=== PATIENT | male | born 1950 ===

== ENCOUNTER 2017-01-20 09:47 | Inpatient (IN) | payer MEDICARE, OTHER ==
[2017-01-20 09:50] VITALS: BMI 21.1
--- NOTE | 2017-01-20 10:51 | ED PDOC ---
Syncope/Near Syncope/Dizziness Time Seen by Provider: 01/20/17 10:03 Chief Complaint (Nursing): Dizziness/Lightheaded Chief Complaint (Provider): Nausea History Per: Patient, Family Additional Complaint(s): 66 yo male, PMH of HTN, DM, High Cholesterol, and CAD s/p Cardiac Cath in 2017, presents to ED with complaints of waking up feeling generalized weakness, epigastric abdominal pain and nausea. Pt has had 2 episodes of non bloody, non billious vomiting. No fever or chills, no diarrhea. no SOB or chest pain. Pt's PMD: Dr. Areli Byrne Insulation Installer: Dr. Aguilar (sp?) Past Medical History Reviewed: Nursing Documentation, Vital Signs Vital Signs: Last Vital Signs Temp 97.2 F L 01/20/17 09:49 Pulse 56 L 01/20/17 09:49 Resp 16 01/20/17 09:49 BP 138/69 01/20/17 09:49 Pulse Ox 100 01/20/17 09:49 - Medical History PMH: Anemia (IRON DEFICIENCY), CAD, Colonic Polyps, Diabetes, Gall Bladder Disease, HTN, Hypercholesterolemia Denies: Fractures, Chronic Kidney Disease - Surgical History Surgical History: Carotid Endarterectomy (1 year ago), Cholecystectomy (about 15 years ago), Coronary Stent, Hernia Repair - Family History Family History: States: Unknown Family Hx - Living Arrangements Living Arrangements: With Family - Social History Current smoker - smoking cessation education provided: No Ex-Smoker (has not smoked in the last 12 months): Yes Alcohol: None Drugs: Denies - Immunization History Hx Tetanus Toxoid Vaccination: No Hx Influenza Vaccination: Yes Hx Pneumococcal Vaccination: Yes - Home Medications Home Medications: Ambulatory Orders Medication Instructions Recorded Aspirin [Ecotrin] 81 mg PO DAILY 11/26/16 Carvedilol [Coreg] 12.5 mg PO BID 11/26/16 Clopidogrel [Plavix] 75 mg PO DAILY 11/26/16 Famotidine 20 mg PO DAILY 11/26/16 Ferrous Sulfate [Feosol] 325 mg PO DAILY 11/26/16 Glimepiride 2 mg PO DAILY 11/26/16 Insulin Detemir [Levemir] 15 iu SUBCUT DAILY 11/26/16 Simvastatin 40 mg PO HS 11/26/16 Lisinopril [Zestril] 20 mg PO DAILY 12/17/16 amLODIPine [Norvasc] 5 mg PO DAILY 12/17/16 - Allergies Allergies/Adverse Reactions: Allergies Allergy/AdvReac Type Severity Reaction Status Date / Time No Known Allergies Allergy Verified 01/20/17 09:52 Review of Systems ROS Statement: Except As Marked, All Systems Reviewed And Found Negative Gastrointestinal: Positive for: Nausea, Vomiting, Abdominal Pain Physical Exam - Reviewed Nursing Documentation Reviewed: Yes Vital Signs Reviewed: Yes - Physical Exam Appears: Positive for: Well, Non-toxic, No Acute Distress Head Exam: Positive for: ATRAUMATIC, NORMAL INSPECTION, NORMOCEPHALIC Skin: Positive for: Normal Color, Warm, DRY Eye Exam: Positive for: EOMI, Normal appearance, PERRL ENT: Positive for: Normal ENT Inspection Neck: Positive for: Normal, Painless ROM Cardiovascular/Chest: Positive for: Regular Rate, Rhythm Respiratory: Positive for: CNT, Normal Breath Sounds Gastrointestinal/Abdominal: Positive for: Bowel Sounds, Soft, Tenderness ( epigastric). Negative for: Mass, Distended, Guarding Back: Positive for: Normal Inspection Extremity: Positive for: Normal ROM Neurologic/Psych: Positive for: Alert, Oriented - Laboratory Results Result Diagrams: 01/20/17 10:55 01/20/17 12:37 - ECG O2 Sat by Pulse Oximetry: 100 Medical Decision Making Medical Decision Making: IV access established and diagnostics ordered. Treatment initiated with IV Zofran and pepcid EKG interpreted and cleared by ED MD IV access established and treatment initiated with IVF, Zofran and Pepcid WBC resulted 10.3 Hgb 11.0 Pt, PTT INR WNL COMP with K elevated at 5.6, repeat 5.3. Pt given Kayexalate BUN 29 Cr 2.3 IVF running Lipase elevated at 431 Abdominal US resulted negative Pt on re-eval reports feeling improved. pt is tolerating PO without difficulty. Pt asking to go home. However, due to hyperkalemia, acute renal insufficiency and elevated lipase. admission advised. Case discussed with ED MD, who agreed with plan at this time. med on-call physician, Dr. Meredith, contacted and case discussed. Arrangements made for admission. Disposition - Clinical Impression Clinical Impression: Renal insufficiency, Hyperkalemia, Weakness, Epigastric abdominal pain, Elevated lipase - Patient ED Disposition Is Patient to be Admitted: Yes - Disposition Disposition Time: 18:40 Condition: STABLE Instructions: Weakness (ED)
[2017-01-20 11:07] LABS: BASO # 0.1 K/uL (0.0-0.2); BASO % 0.9 % (0.0-2.0); EOS # 0.3 K/uL (0.0-0.7); EOS % 2.9 % (0.0-4.0); LYMPH # 1.4 K/uL (1.0-4.3); LYMPH % 13.7 % (20.0-40.0); MEAN CELL VOLUME 82.8 fl (80.0-94.0); MEAN CORPUSCULAR HGB CONC 32.6 g/dL (33.0-37.0); MEAN PLATELET VOLUME 8.3 fl (7.2-11.7); MONO # 0.8 K/uL (0.0-0.8); MONO % 7.3 % (0.0-10.0); NEUT # 7.8 K/uL (1.8-7.0); NEUT % 75.2 % (50.0-75.0); RBC 4.06 Mil/uL (4.40-5.90); RED CELL DISTRIBUTION WIDTH 13.9 % (11.5-14.5); WHITE BLOOD COUNT 10.3 K/uL (4.8-10.8)
[2017-01-20 11:24] LABS: ALB/GLOB RATIO 1.2 (1.0-2.1); ALBUMIN 3.6 g/dL (3.5-5.0); ALT/SGPT 38 U/L (21-72); AST/SGOT 48 U/L (17-59); BLOOD UREA NITROGEN 29 mg/dl (9-20); CALCIUM 8.9 mg/dL (8.4-10.2); GFR AFRICAN-AMERICAN 35; GFR NON-AFRICAN AMERICAN 29; LIPASE 421 U/L (23-300)
[2017-01-20 11:28] LABS: PROTHROMBIN TIME 11.7 Seconds (9.8-13.1)
[2017-01-20 11:29] LABS: PARTIAL THROMBOPLASTIN TIME 29.5 Seconds (25.6-37.1)
[2017-01-20 11:34] LABS: B-TYPE NATRIURETIC PEPTIDE 176 pg/ml (0-900)
--- NOTE | 2017-01-20 12:17 | CARD ---
APPROVED REPORT EKG Measurement Heart [id number] <Conclusion> Sinus bradycardia Minimal voltage criteria for LVH, may be normal variant Anteroseptal infarct, age undetermined Abnormal ECG
--- NOTE | 2017-01-20 12:24 | RAD ---
HISTORY: upper abdominal pain COMPARISON: No prior. FINDINGS: LUNGS: No active pulmonary disease. PLEURA: No significant pleural effusion identified, no pneumothorax apparent. CARDIOVASCULAR: Normal. OSSEOUS STRUCTURES: No significant abnormalities. VISUALIZED UPPER ABDOMEN: Normal. OTHER FINDINGS: None. IMPRESSION: No active disease.
[2017-01-20] MEDS ORDERED: Sodium Chloride 0.9% 1,000 ML IV STA (13:27)
--- NOTE | 2017-01-20 16:34 | US ---
HISTORY: elevated lipase, abdominal pain COMPARISON: None. TECHNIQUE: Sonographic evaluation of the right upper quadrant of the abdomen. FINDINGS: LIVER: Measures 13.0 cm in length. Normal echogenicity of the liver parenchyma. No mass. No intrahepatic bile duct dilatation. GALLBLADDER: Not visualized. Question regarding prior cholecystectomy. COMMON BILE DUCT: Measures 6 mm. No stones. No dilatation. PANCREAS: Unremarkable as visualized. No mass. No ductal dilatation. RIGHT KIDNEY: Measures 10.6 cm in length. Normal echogenicity. No calculus, mass, or hydronephrosis. AORTA: No aneurysmal dilatation. IVC: Unremarkable. OTHER FINDINGS: None . IMPRESSION: Unremarkable ultrasound examination. Please note that the gallbladder is not visualized and patient is unsure regarding any history of cholecystectomy.
[2017-01-20] MEDS ORDERED: Lactated Ringer's 1,000 ML IV SCH (18:30)
[2017-01-20] MEDS ORDERED: Sod Polystyrene Sulf 15 gm/60 ml Oral Susp PO ONE (18:33)
[2017-01-20] MEDS: Sodium Chloride 0.9% 1,000 ML IV SCH (22:40)
[2017-01-20] MEDS: Insulin Regular 100 units/ml SC SCH (23:04)
[2017-01-21] MEDS: Insulin Regular 100 units/ml SC SCH ×4 (06:33→21:33)
[2017-01-21 07:14] LABS: HEMOGLOBIN 10.9 g/dL (12.0-18.0); MEAN CELL VOLUME 81.8 fl (80.0-94.0); MEAN CORPUSCULAR HEMOGLOBIN 27.2 pg (27.0-31.0); MEAN CORPUSCULAR HGB CONC 33.2 g/dL (33.0-37.0); RBC 4.02 Mil/uL (4.40-5.90); RED CELL DISTRIBUTION WIDTH 13.5 % (11.5-14.5); WHITE BLOOD COUNT 7.4 K/uL (4.8-10.8)
[2017-01-21 07:25] LABS: ALBUMIN 3.3 g/dL (3.5-5.0); CALCIUM 8.5 mg/dL (8.4-10.2)
[2017-01-21 07:26] LABS: ALB/GLOB RATIO 1.1 (1.0-2.1)
[2017-01-21] MEDS ORDERED: GlipiZIDE 5 mg SR Tab PO SCH (08:00)
[2017-01-21] MEDS: Sodium Chloride 0.9% 1,000 ML IV SCH ×2 (08:38→19:33)
[2017-01-21] MEDS ORDERED: GLIMEPIRIDE 2 MG PO SCH (09:00)
[2017-01-21] MEDS ORDERED: Insulin Detemir 100 Units/ml Inj SC SCH ×2 (09:00→22:00)
--- NOTE | 2017-01-21 15:11 | CP.PCM.HP ---
History of Present Illness - History of Present Illness History of Present Illness: A 66 yo male, PMH of HTN, DM, High Cholesterol, and CAD s/p Cardiac Cath on December 2016 was admitted to telemetry on 01/20/2017 for waking up feeling generalized weakness, epigastric abdominal pain and nausea at the same day. He also had two episodes of non bloody, non billious vomiting. No fever or chills, no diarrhea. no SOB or chest pain. His primary care doctor is Dr. Areli Byrne and his pattern illustrator who did cardiac cath is Dr. Morrison (?). Present on Admission - Present on Admission Any Indicators Present on Admission: No History of DVT/PE: No History of Uncontrolled Diabetes: Yes Urinary Catheter: No Decubitus Ulcer Present: No Review of Systems - Constitutional Constitutional: Fatigue - Gastrointestinal Gastrointestinal: Nausea Past Patient History - Past Medical History & Family History Past Medical History?: Yes - Past Social History Smoking Status: Former Smoker - CARDIAC Hx Cardiac Disorders: Yes Hx Hypercholesterolemia: Yes Hx Hypertension: Yes - PULMONARY Hx Respiratory Disorders: No - NEUROLOGICAL Hx Neurological Disorder: Yes HX Cerebrovascular Accident: Yes (ABOUT 2013-LEFT SIDED WEAKNESS REMAINS) - HEENT Hx HEENT Problems: Yes Hx Cataracts: Yes (LEFT EYE) - RENAL Hx Chronic Kidney Disease: No - ENDOCRINE/METABOLIC Hx Endocrine Disorders: Yes Hx Diabetes Mellitus Type 2: Yes - HEMATOLOGICAL/ONCOLOGICAL Hx Blood Disorders: Yes Hx Anemia: Yes (IRON DEFICIENCY) - INTEGUMENTARY Hx Dermatological Problems: No - MUSCULOSKELETAL/RHEUMATOLOGICAL Hx Musculoskeletal Disorders: No Hx Falls: No Hx Fractures: No - GASTROINTESTINAL Hx Gastrointestinal Disorders: Yes Hx Gall Bladder Disease: Yes Other/Comment: colonic polyps - GENITOURINARY/GYNECOLOGICAL Hx Genitourinary Disorders: No - PSYCHIATRIC Hx Psychophysiologic Disorder: No Hx Substance Use: No - SURGICAL HISTORY Hx Surgeries: Yes Hx Carotid Endarterectomy: Yes (1 year ago) Hx Cholecystectomy: Yes (about 15 years ago) Hx Coronary Stent: Yes (cardiac cath (2016)) Hx Herniorrhaphy: Yes (hernia repair) - ANESTHESIA Hx Anesthesia: Yes Hx Anesthesia Reactions: No Hx Malignant Hyperthermia: No Meds Allergies/Adverse Reactions: Allergies Allergy/AdvReac Type Severity Reaction Status Date / Time No Known Allergies Allergy Verified 01/20/17 09:52 Physical Exam - Constitutional Appears: Non-toxic - Head Exam Head Exam: NORMAL INSPECTION - Respiratory Exam Respiratory Exam: Clear to Auscultation Bilateral, NORMAL BREATHING PATTERN - Cardiovascular Exam Cardiovascular Exam: REGULAR RHYTHM, +S1, +S2 - GI/Abdominal Exam GI & Abdominal Exam: Normal Bowel Sounds, Soft - Extremities Exam Extremities exam: Positive for: normal inspection - Neurological Exam Neurological exam: Alert, Normal Gait Results - Vital Signs Recent Vital Signs: Last Vital Signs Temp 97.4 F L 01/21/17 12:15 Pulse 60 01/21/17 12:15 Resp 20 01/21/17 12:15 BP 155/72 H 01/21/17 12:15 Pulse Ox 99 01/21/17 12:15 - Labs Result Diagrams: 01/21/17 05:00 01/21/17 05:00 Labs: Laboratory Results - last 24 hr 01/20/17 01/20/17 01/21/17 21:57 23:00 05:00 WBC 7.4 RBC 4.02 L Hgb 10.9 L Hct 32.9 L MCV 81.8 MCH 27.2 MCHC 33.2 RDW 13.5 Plt Count 329 APTT Sodium Potassium Chloride Carbon Dioxide Anion Gap BUN Creatinine Est GFR ( Amer) Est GFR (Non-Af Amer) POC Glucose (mg/dL) 214 H 209 H Random Glucose Hemoglobin A1c Calcium Total Bilirubin AST ALT Alkaline Phosphatase Total Protein Albumin Globulin Albumin/Globulin Ratio Triglycerides Cholesterol LDL Cholesterol Direct HDL Cholesterol 01/21/17 01/21/17 01/21/17 05:00 05:00 05:00 WBC RBC Hgb Hct MCV MCH MCHC RDW Plt Count APTT 30.3 Sodium 140 Potassium 4.4 Chloride 107 Carbon Dioxide 25 Anion Gap 12 BUN 28 H Creatinine 2.2 H Est GFR ( Amer) 36 Est GFR (Non-Af Amer) 30 POC Glucose (mg/dL) Random Glucose 85 Hemoglobin A1c 9.6 H Calcium 8.5 Total Bilirubin 0.3 AST 30 ALT 38 Alkaline Phosphatase 122 Total Protein 6.2 L Albumin 3.3 L Globulin 2.9 Albumin/Globulin Ratio 1.1 Triglycerides 122 Cholesterol 119 LDL Cholesterol Direct 42 HDL Cholesterol 35 01/21/17 01/21/17 05:12 10:47 WBC RBC Hgb Hct MCV MCH MCHC RDW Plt Count APTT Sodium Potassium Chloride Carbon Dioxide Anion Gap BUN Creatinine Est GFR ( Amer) Est GFR (Non-Af Amer) POC Glucose (mg/dL) 85 233 H Random Glucose Hemoglobin A1c Calcium Total Bilirubin AST ALT Alkaline Phosphatase Total Protein Albumin Globulin Albumin/Globulin Ratio Triglycerides Cholesterol LDL Cholesterol Direct HDL Cholesterol Assessment & Plan - Assessment and Plan (Free Text) Assessment: A 66 year old male who came with nausea, vomiting. high lipase renal insufficiency hyperkalemia anemia acute pancreatitis (high lipase) history of cardiac cath Plan: intravenous hydration zofran prn. DVT prophylaxis repeat potassium level diabetic control - Date & Time Date: 01/21/17 Time: 15:16
--- NOTE | 2017-01-21 15:36 | CP.PCM.PN ---
Subjective - Date & Time of Evaluation Date of Evaluation: 01/21/17 Time of Evaluation: 15:34 - Subjective Subjective: feels better no headache no dizziness no chest pain Objective - Vital Signs/Intake and Output Vital Signs (last 24 hours): Temp Pulse Resp BP Pulse Ox 97.4 F L 60 20 155/72 H 99 01/21/17 12:15 01/21/17 12:15 01/21/17 12:15 01/21/17 12:15 01/21/17 12:15 - Medications Medications: Current Medications Acetaminophen (Tylenol 325mg Tab) 650 mg PO Q6 PRN PRN Reason: Pain, moderate (4-7) Last Admin: 01/20/17 22:40 Dose: 650 mg Amlodipine Besylate (Norvasc) 10 mg PO DAILY [facility] Last Admin: 01/21/17 08:33 Dose: 10 mg Aspirin (Ecotrin) 81 mg PO DAILY [facility] Last Admin: 01/21/17 08:33 Dose: 81 mg Atorvastatin Calcium (Lipitor) 40 mg PO [facility] Carvedilol (Coreg) 12.5 mg PO Q12H [facility] Last Admin: 01/21/17 09:24 Dose: 12.5 mg Cholecalciferol (Vitamin D) 1,000 iu PO DAILY [facility] Last Admin: 01/21/17 09:26 Dose: 1,000 iu Famotidine (Pepcid) 20 mg PO DAILY [facility] Last Admin: 01/21/17 08:37 Dose: 20 mg Ferrous Sulfate (Feosol) 325 mg PO DAILY [facility] Last Admin: 01/21/17 08:37 Dose: 325 mg Glipizide (Glucotrol Xl) 5 mg PO BRK [facility] Last Admin: 01/21/17 08:32 Dose: 5 mg Heparin Sodium (Porcine) (Heparin) 5,000 units SC Q12 [facility] PRN Reason: Protocol Last Admin: 01/21/17 08:31 Dose: 5,000 units Sodium Chloride (Sodium Chloride 0.9%) 1,000 mls @ 100 mls/hr IV .Q10H [facility] Stop: 01/21/17 22:17 Last Admin: 01/21/17 08:38 Dose: 100 mls/hr Insulin Detemir (Levemir) 15 units SC DAILY [facility] Last Admin: 01/21/17 08:34 Dose: 15 units Insulin Human Regular (Humulin R) 0 units SC ACCU-CHECK [facility] PRN Reason: Protocol Last Admin: 01/21/17 12:47 Dose: 2 units Lisinopril (Zestril) 20 mg PO DAILY [facility] Last Admin: 01/21/17 08:31 Dose: 20 mg Ondansetron HCl (Zofran Inj) 4 mg IVP Q6 PRN PRN Reason: Nausea/Vomiting Sitagliptin Phosphate (Januvia) 25 mg PO DAILY [facility] Last Admin: 01/21/17 08:32 Dose: 25 mg Ticagrelor (Brilinta) 90 mg PO BID [facility] Last Admin: 01/21/17 08:33 Dose: 90 mg - Labs Labs: 01/21/17 05:00 01/21/17 05:00 PT 11.7 Seconds (9.8-13.1) 01/20/17 10:55 INR 1.0 (0.9-1.2) 01/20/17 10:55 APTT 30.3 Seconds (25.6-37.1) 01/21/17 05:00 - Constitutional Appears: Non-toxic - Neck Exam Neck Exam: Full ROM, Normal Inspection - Respiratory Exam Respiratory Exam: NORMAL BREATHING PATTERN. absent: Wheezes, Respiratory Distress - Cardiovascular Exam Cardiovascular Exam: REGULAR RHYTHM, +S1, +S2. absent: Murmur - GI/Abdominal Exam GI & Abdominal Exam: Soft, Normal Bowel Sounds. absent: Tenderness - Exam External exam: absent: Swelling (right inguinal mass probably due to the previous cath) Assessment and Plan - Assessment and Plan (Free Text) Assessment: A 66 year old male woh has HTN, DM, CAD came with high creatinine. 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 repeat lipase as an out patient.
[2017-01-21] MEDS ORDERED: Dextrose 50% SYRINGE Inj (50 ml) IVP ONE (16:03)
[2017-01-21] MEDS ORDERED: Dextrose 50% SYRINGE Inj (50 ml) IVP STA (16:08)
[2017-01-21] MEDS ORDERED: Dextrose 50% SYRINGE Inj (50 ml) ONE (16:08)
--- NOTE | 2017-01-22 05:13 | CON ---
DATE: 01/21/2017 LOCATION: Room 401. HISTORY OF PRESENT ILLNESS: This is a 66-year-old male with a known history of type 2 diabetes and hypertension who presents here with sudden onset of generalized body weakness and supervening nausea, dyspepsia, and vomiting and is now being referred for a diabetic evaluation, because of supervening symptomatic hypoglycemia on the day of possible discharge. PAST MEDICAL HISTORY: History of type 2 diabetes with aforementioned drug combination as mentioned, history of hypertensive cardiovascular disease and dyslipidemia, history of coronary artery disease with previous cardiac cath done a few months ago by Dr. Hernandez, his gravity flow irrigator in [place]. The exact nature and results are not known at this time. History of cardiac tachyarrhythmia, currently on anticoagulation therapy. History of a previous cerebrovascular event with residual left-sided weakness as noted. MEDICATIONS: Currently on the combination of Januvia given as 25 mg once daily and Amaryl given as 2 mg daily as noted. He was placed on glipizide in the hospital since we do not have Amaryl in our hospital formulary. FAMILY HISTORY: Positive for diabetes and hypertension. SOCIAL HISTORY: The patient has supportive family and admits to previous history of smoking. REVIEW OF SYSTEMS: As mentioned above, admits to sudden onset of generalized body weakness with supervening dizziness and lightheadedness. Glucose levels were actually down to 27 mg/dL today as noted. Also prior history of easy fatigability and tiredness with suboptimal energy level and increasing bouts of somnolence and lethargy even prior to this admission. No chest pains or palpitations or PNDs, although admits to exertional fatigability and dyspnea. His oral intake has been variable with nausea, dyspepsia, and recent bouts of vomiting. Also admits to episodic bouts of polyuria and nocturia as noted. Also has lower extremity paresthesias, especially nocturnally. PHYSICAL EXAMINATION: GENERAL: This is an average built male in no apparent distress. VITAL SIGNS: Blood pressure of 140/90, pulse of 70 beats per minute and regular, temperature 98, respirations 20. Height is 5 feet 7 inches, weight is 135 pounds. HEENT: Head is normocephalic. Eyes anicteric with pink conjunctivae. Funduscopy not possible at this time. Ears, nose, and throat otherwise normal. NECK: Supple. Thyroid gland is normal size. No carotid bruits or cervical adenopathy. CARDIOPULMONARY: Adynamic precordium. S1 and S2 are rapid and regular. LUNGS: Show scattered rhonchi. ABDOMEN: Flat, soft with positive bowel sounds. EXTREMITIES: No peripheral edema. Pulses are +2 bilaterally. LABORATORY DATA: The chemistry showed a BUN of 28, sodium 140, potassium 4.4, chloride is 107, CO2 of 25, glucose 85, and creatinine 2.2. His glucose levels today have ranged from 27 to 40 and 85 mg/dL. The hemoglobin A1c is 9.6%, which is actually elevated and indicative of suboptimal metabolic control of his diabetic condition. ASSESSMENT AND PLAN: This is a 66-year-old male with uncontrolled and decompensated type 2 insulin-requiring diabetes, currently on basal insulin, given Levemir of 15 units subcutaneous at bedtime daily with a combination of oral hypoglycemic therapy with Januvia and glipizide medications as given and developing today symptomatic hypoglycemia with associated neuroglycopenic and hyperadrenergic manifestations of the same. He also has diabetic microvascular complications of retinopathy, polyneuropathy and nephropathy with underlying chronic kidney disease and clearly has lesser insulin requirements at this time. He also has diabetic macrovascular complications of cerebrovascular disease, coronary artery disease, peripheral arterial disease, and vasculopathy. Plan of management was discussed with the nurse practitioner, Tyra, we will discontinue all the basal insulin therapy at this time and observe his glycemic fluctuations overnight and determine the need for resumption of his basal insulin and/or just keeping him on a combination of oral hypoglycemic drug therapy as indicated. We will discontinue the glipizide for now and keep him on the Januvia given 25 mg once daily as ordered. We will modify the *------* hypoglycemia and detailed orders have been given. We will discontinue the basal insulin given as Levemir at bedtime daily as ordered. We will obtain serial chemistries and supplement accordingly as needed. We will follow. Nichole Salgado MD
[2017-01-22] MEDS: Insulin Regular 100 units/ml SC SCH ×2 (06:32→12:14)
[2017-01-22 06:53] LABS: HEMOGLOBIN 9.8 g/dL (12.0-18.0); MEAN CELL VOLUME 82.6 fl (80.0-94.0); MEAN CORPUSCULAR HEMOGLOBIN 27.4 pg (27.0-31.0); MEAN CORPUSCULAR HGB CONC 33.2 g/dL (33.0-37.0); RBC 3.59 Mil/uL (4.40-5.90); RED CELL DISTRIBUTION WIDTH 13.9 % (11.5-14.5); WHITE BLOOD COUNT 7.6 K/uL (4.8-10.8)
--- NOTE | 2017-01-22 07:06 | CP.PCM.PN ---
Subjective - Date & Time of Evaluation Date of Evaluation: 01/22/17 Time of Evaluation: 07:04 - Subjective Subjective: yesterday afternoon capillary glucose dropped to 27 with symptoms this morning he feels fine, glucose 180 by fingerstick no dizziness no chest pain Objective - Vital Signs/Intake and Output Vital Signs (last 24 hours): Temp Pulse Resp BP Pulse Ox 98.3 F 61 16 128/64 100 01/22/17 05:00 01/22/17 05:00 01/22/17 05:00 01/22/17 05:00 01/22/17 05:00 Intake and Output: 01/22/17 01/22/17 06:59 18:59 Intake Total 1380 Balance 1380 - Medications Medications: Current Medications Acetaminophen (Tylenol 325mg Tab) 650 mg PO Q6 PRN PRN Reason: Pain, moderate (4-7) Last Admin: 01/20/17 22:40 Dose: 650 mg Amlodipine Besylate (Norvasc) 10 mg PO DAILY [facility] Last Admin: 01/21/17 08:33 Dose: 10 mg Aspirin (Ecotrin) 81 mg PO DAILY [facility] Last Admin: 01/21/17 08:33 Dose: 81 mg Atorvastatin Calcium (Lipitor) 40 mg PO HS [facility] Last Admin: 01/21/17 21:29 Dose: 40 mg Carvedilol (Coreg) 12.5 mg PO Q12H [facility] Last Admin: 01/21/17 21:30 Dose: 12.5 mg Cholecalciferol (Vitamin D) 1,000 iu PO DAILY [facility] Last Admin: 01/21/17 09:26 Dose: 1,000 iu Famotidine (Pepcid) 20 mg PO DAILY [facility] Last Admin: 01/21/17 08:37 Dose: 20 mg Ferrous Sulfate (Feosol) 325 mg PO DAILY [facility] Last Admin: 01/21/17 08:37 Dose: 325 mg Heparin Sodium (Porcine) (Heparin) 5,000 units SC Q12 [facility] PRN Reason: Protocol Last Admin: 01/21/17 21:29 Dose: 5,000 units Insulin Human Regular (Humulin R) 0 units SC ACHS [facility] PRN Reason: Protocol Last Admin: 01/22/17 06:32 Dose: Not Given Lisinopril (Zestril) 20 mg PO DAILY [facility] Last Admin: 01/21/17 08:31 Dose: 20 mg Ondansetron HCl (Zofran Inj) 4 mg IVP Q6 PRN PRN Reason: Nausea/Vomiting Sitagliptin Phosphate (Januvia) 25 mg PO DAILY [facility] Last Admin: 01/21/17 08:32 Dose: 25 mg Ticagrelor (Brilinta) 90 mg PO BID [facility] Last Admin: 01/21/17 16:13 Dose: 90 mg - Labs Labs: 01/21/17 05:00 01/21/17 05:00 PT 11.7 Seconds (9.8-13.1) 01/20/17 10:55 INR 1.0 (0.9-1.2) 01/20/17 10:55 APTT 30.3 Seconds (25.6-37.1) 01/21/17 05:00 - Constitutional Appears: Non-toxic - Respiratory Exam Respiratory Exam: NORMAL BREATHING PATTERN. absent: Wheezes - Cardiovascular Exam Cardiovascular Exam: REGULAR RHYTHM - GI/Abdominal Exam GI & Abdominal Exam: Soft, Normal Bowel Sounds. absent: Tenderness Assessment and Plan - Assessment and Plan (Free Text) Assessment: 66 y/o male who came with dizziness, renal insufficiency and hyperkalemia uncontrolled diabetes Endocrinology consult was done. levemir and glipizide were held. Plan: endocrinology follow up. may be discharged if cleared from endocrinology out patient management
[2017-01-22 07:08] LABS: ALBUMIN 2.9 g/dL (3.5-5.0); CALCIUM 8.1 mg/dL (8.4-10.2)
[2017-01-22 08:08] VITALS: RESP 18
[2017-01-22 16:08] VITALS: BP 144/66; PULSE 63; TEMP 97.5; O2SAT 98
--- NOTE | 2017-01-22 17:06 | PN ---
ENDOCRINOLOGY FOLLOWUP NOTE DATE: ROOM: 401. SUBJECTIVE: This is a 66-year-old male with recent uncontrolled type 2 insulin requiring diabetes, now being followed closely for metabolic management. He has had variable oral intake with supervening glycemic fluctuations as noted. Last night, he had a bout of symptomatic hypoglycemia with associated neuroglycopenic and hyperadrenergic manifestations of the same. His latest glucose levels today have ranged from 160-233 mg/dL. The latest chemistry showed a BUN of 24, sodium 136, potassium 4.2, chloride 105, CO2 25, glucose 160, and creatinine 2.0. ASSESSMENT AND PLAN: This is a 66-year-old male with uncontrolled and decompensated type 2 diabetes with extremes of glycemic fluctuations, initially with symptomatic hypoglycemia and associated neuroglycopenic and hyperadrenergic manifestations of the same with now a near optimal metabolic control of his diabetic condition as noted. So at this time, we have actually discontinued the insulin therapy and switched him over only to oral Januvia, given 25 mg once daily. However, he will need another oral agent such as Amaryl, which we do not carry in the formulary at a lower dose of 2 mg once daily with dinner as ordered. We will discuss with the family regarding the aforementioned. We will follow with you. Nichole Salgado MD
== END 2017-01-22 19:00 | disposition home or self-care (01) | DRG 439 ==
LOC: H.ER 09:47 → OBSVTOIN 18:35 → H.ERHOLD 18:35 → INTOOBSV 18:35 → H.TEL 20:50
PROVIDERS: ADMIT Internal Medicine; ATTEND Internal Medicine
DX: K85.90 Acute pancreatitis without necrosis or infection, unspecified (principal); I69.354 Hemiplegia and hemiparesis following cerebral infarction affecting left non-dominant side; E11.21 Type 2 diabetes mellitus with diabetic nephropathy; I11.9 Hypertensive heart disease without heart failure; E11.42 Type 2 diabetes mellitus with diabetic polyneuropathy; E87.5 Hyperkalemia; E11.65 Type 2 diabetes mellitus with hyperglycemia; E11.319 Type 2 diabetes mellitus with unspecified diabetic retinopathy without macular edema; I25.10 Atherosclerotic heart disease of native coronary artery without angina pectoris; D50.8 Other iron deficiency anemias; E11.649 Type 2 diabetes mellitus with hypoglycemia without coma; E78.00 Pure hypercholesterolemia, unspecified; E78.5 Hyperlipidemia, unspecified; I73.9 Peripheral vascular disease, unspecified; Z95.5 Presence of coronary angioplasty implant and graft; Z79.4 Long term (current) use of insulin; Z79.02 Long term (current) use of antithrombotics/antiplatelets; Z79.82 Long term (current) use of aspirin; Z87.891 Personal history of nicotine dependence; Z86.010 Personal history of colon polyps